=== PATIENT | male | born 1960 ===

== ENCOUNTER → 2018-11-03 20:58 | Outpatient (REF) | payer OTHER, SELFPAY ==
[2018-11-03 21:52] LABS: Glucose 93 mg/dL (70-100)
[2018-11-03 23:03] LABS: Hemoglobin A1C% w Est Avg Glu 5.3 % (4.0-6.0)
[2018-11-06 19:43] LABS: Insulin Level Total 6.8 uIU/mL (2.0-19.6)
== END ==
LOC: LAB 20:58
PROVIDERS: Visit Provider Naturopath
DX: R73.09 Other abnormal glucose (principal)
CPT/HCPCS: 36415; 82947; 83036; 83525